=== PATIENT | male | born 1955 | race Caucasian/White ===

== ENCOUNTER 2023-02-20 01:10 | Day surgery (SDC) | payer MEDICARE, SELFPAY ==
[2023-02-11 11:13] VITALS: BMI 25.1
[2023-02-20 12:37] VITALS: BP 137/83; PULSE 68; RESP 18; TEMP 36.2; O2SAT 93
[2023-02-20] MEDS: LACTATED RINGERS 1,000 ML 150 ML IV CONT (12:49)
--- NOTE | 2023-02-20 13:02 | P.PNAN_ITS ---
Anes - Initial Pre Proc Eval Procedure: Operation Date: 02/20/23 13:30 Proposed Procedures p Screening Colonoscopy - Freddy Grove MD Date/Time: 02/20/23 13:02 Surgeon: Freddy Grove MD Pre Op Diagnosis: neoplasm screening Patient Data Age: 67 Gender: M Height: 1.7 m Weight: 83.2 kg Last Vital Signs Temp 97.2 F L 02/20/23 12:37 Pulse 68 02/20/23 12:37 Resp 18 02/20/23 12:37 BP 137/83 02/20/23 12:37 Pulse Ox 93 02/20/23 12:37 O2 Del Method Room Air 02/20/23 12:37 Allergies Allergy/AdvReac Type Severity Reaction Status Date / Time No Known Allergies Allergy Verified 02/20/23 12:35 Home Medications Medication Instructions Recorded Confirmed Type Adults Multivitamin 1 tab-cap PO DAILY 02/11/23 02/11/23 History [place] 3 1,000 mg PO DAILY 02/11/23 02/11/23 History amlodipine 10 mg tablet 10 mg PO DAILY 02/11/23 02/11/23 History magnesium 250 mg tablet 250 mg PO DAILY 02/11/23 02/11/23 History metoprolol succinate 50 mg 50 mg PO DAILY 02/11/23 02/11/23 History tablet,extended release 24 hr pravastatin 80 mg tablet 80 mg PO DAILY 02/11/23 02/11/23 History pregabalin 75 mg capsule 75 mg PO BID PRN NEUROPATHY 02/11/23 02/11/23 History Patient hx anesthesia problems: none Family hx anesthesia problems: none Results Review: All pre-operative results and documents have been reviewed as part of the pre- operative evaluation. [facility], [facility] Social History Social History Smoking status: Never smoker Alcohol intake: current Drinks per week: 4 Alcohol use details: GLASSES WINE Substance use: never Substance use type: does not use Living arrangements: alone Spiritual care concerns: No Anes - Eval Final PreProcedure Day of Procedure 02/20/23 13:02 Patient weight: obese Heart: regular rate and rhythm Lungs: clear to auscultation Airway: Mallampati scale class II Neurological: alert and oriented Last oral intake: >/= 8 hours ASA classification: III Emergent: no Anesthetic plan: proceed Anesthesia type and monitoring: general GIVS and standard monitoring Results Review: All pre-operative results and documents have been reviewed as part of the pre- operative evaluation. Informed Consent: The patient's anesthetic plan and its attendant risks and benefits were discussed with the patient/family/POA. Questions were solicited and answers provided to the satisfaction of the patient/family/POA.
--- NOTE | 2023-02-20 13:10 | P.HP_ITS ---
History of Present Illness History of Present Illness Consent: Risks, benefits, and alternatives have been discussed and questions answered. Patient agrees to proceed with procedure. Chief complaint: neoplasm screening Narrative: Adolfo Landin is a 67 year old male referred for colon cancer screening. Review of Systems Review of Systems: All systems reviewed & are unremarkable except as noted in HPI and below PMFSH Social History Social History Smoking status: Never smoker Alcohol intake: current Drinks per week: 4 Alcohol use details: GLASSES WINE Substance use: never Substance use type: does not use Living arrangements: alone Spiritual care concerns: No Meds Home Medications and Allergies Home Medications Medication Instructions Recorded Confirmed Type Adults Multivitamin 1 tab-cap PO DAILY 02/11/23 02/11/23 History [place] 3 1,000 mg PO DAILY 02/11/23 02/11/23 History amlodipine 10 mg tablet 10 mg PO DAILY 02/11/23 02/11/23 History magnesium 250 mg tablet 250 mg PO DAILY 02/11/23 02/11/23 History metoprolol succinate 50 mg 50 mg PO DAILY 02/11/23 02/11/23 History tablet,extended release 24 hr pravastatin 80 mg tablet 80 mg PO DAILY 02/11/23 02/11/23 History pregabalin 75 mg capsule 75 mg PO BID PRN NEUROPATHY 02/11/23 02/11/23 History Allergies Allergy/AdvReac Type Severity Reaction Status Date / Time No Known Allergies Allergy Verified 02/20/23 12:35 Vital Signs Vital Signs - 24 hr 02/20/23 12:37 Temperature 36.2 C L Pulse Rate 68 Respiratory Rate 18 Blood Pressure 137/83 Pulse Oximetry 93 Oxygen Delivery Room Air Exam Const: General: alert Orientation/consciousness: patient oriented x3 Resp: Auscultation: clear to auscultation bilaterally Cardio: Rhythm: regular rhythm GI: GI Palp: Yes Soft to palpation and No Tenderness to palpation present (GI) Neuro: General: patient oriented x3 Assessment and Plan Assessment and plan (1) Colon cancer screening: Code(s): Z12.11 - Encounter for screening for malignant neoplasm of colon Status: Acute Assessment and Plan: Colonoscopy with possible biopsy or polypectomy or cautery or injection of substances.
[2023-02-20 13:33] VITALS: BP 102/59; PULSE 64; RESP 27; O2SAT 95
[2023-02-20 13:43] VITALS: BP 125/78; PULSE 65; RESP 30; O2SAT 93
[2023-02-20 13:53] VITALS: BP 115/78; PULSE 66; RESP 18; O2SAT 97
== END 2023-02-20 14:30 | disposition home or self-care (01) ==
PROVIDERS: PCP Family Medicine; Visit Provider Internal Medicine Gastroenterology
PROC: 0DJD8ZZ Inspection of Lower Intestinal Tract, Via Natural or Artificial Opening Endoscopic (ICD-10-PCS; CPT 45378; principal; 2023-02-20 13:30)
DX: Z12.11 Encounter for screening for malignant neoplasm of colon (principal); E66.9 Obesity, unspecified; Z68.28 Body mass index [BMI] 28.0-28.9, adult
CPT/HCPCS: G0121; J2704; J7120

== ENCOUNTER 2023-09-15 18:46 | Observation (INO) | payer MEDICARE, SELFPAY ==
[2023-09-15] VITALS (10 sets, daily range): BP systolic 141–198; BP diastolic 79–118; PULSE 64–93; RESP 16–24; TEMP 36.2–36.8; O2SAT 89–99; BMI 29.9
--- NOTE | ~2023-09-15 | CT_ITS ---
EXAMINATION: CT brain wo con DATE: 09/15/2023 19:13 INDICATION: syncope/seizure . TECHNIQUE: Computed tomography (CT) of the head was performed without intravenous contrast. The mA wa s adjusted according to patient size. Iterative reconstruction technique was employed. The dose-lengt h product was 681.00 mGy-cm. COMPARISON: 12/04/2017. FINDINGS: No acute intracranial hemorrhage or extra-axial fluid collection. No hydrocephalus, mass, or herniation. No acute ischemic infarct. Unremarkable dural venous sinus attenuation. No acute osseous abnormality. Bilateral maxillary sphenoid and middle ethmoid mucosal thickening, sphenoid and maxillary osseous sc lerosis, aerated secretions in the left maxillary sinus and nasopharynx aerated spaces are clear. Moderate atrophy and chronic white matter change. Atherosclerotic intracranial calcification. Bilater al lens replacements. IMPRESSION: No acute intracranial process. Acute on chronic sinusitis. Results reported telephonically to Dr. Escobar by Dr. Turner at 7:18 PM on 09/15/2023. Reviewed, dictated and finalized at location K. IMPRESSION: No acute intracranial process. Acute on chronic sinusitis. Results reported telephonically to Dr. Escobar by Dr. Turner at 7:18 PM on .
--- NOTE | ~2023-09-15 | MR_ITS ---
MRA HEAD History: Syncope Technique: 3D time of flight MRA of the head is performed. Findings: The right and left distal vertebral arteries and the basilar and posterior cerebral arterie s are normal. Right and left distal internal carotid arteries and anterior and middle cerebral arteri es are normal. There is no aneurysm, stenosis, or occlusion. Impression: No occlusion, stenosis, or aneurysm. Reviewed, dictated and finalized at location . Impression: No occlusion, stenosis, or aneurysm.
--- NOTE | ~2023-09-15 | XR_ITS ---
EXAMINATION: XR chest 1V portable Exam Date/Time: 09/15/2023 19:38 CDT HISTORY: syncope Comparison: 02/14/2018. RESULT: Lines, tubes, and devices: None. Lungs and pleura: Minimal bibasilar scarring/atelectasis, otherwise clear. Cardiomediastinal silhouette: Stable. Other: No acute osseous or upper abdominal finding. Multiple old right rib fractures IMPRESSION: No acute cardiopulmonary process. Reviewed, dictated and finalized at location K.
--- NOTE | ~2023-09-15 | CT_ITS ---
EXAMINATION: CT cervical spine wo con DATE: 09/15/2023 19:13 INDICATION: head injury TECHNIQUE: Computed tomography (CT) of the cervical spine was performed without intravenous contrast. Automated exposure control and iterative reconstruction technique were employed. The dose-length pro duct was 681.00 mGy-cm. COMPARISON: None. FINDINGS: Vertebral Body Alignment: Intact. Craniocervical and atlantoaxial alignment: Moderate degenerative change. Alignment intact. Osseous structures/fracture: No evidence of a lytic or blastic process in the visualized spine. No e vidence of acute fracture. Cervical soft tissues: The paraspinal soft tissues planes are maintained. Degenerative changes: Multilevel severe degenerative disc disease and facet arthropathy. Multilevel s evere bilateral neural foraminal narrowing. No severe central canal narrowing. 4 mm central protrusio n at C3-4 causing moderate central canal stenosis. IMPRESSION: No acute fracture or traumatic malalignment in the cervical spine. Reviewed, dictated and finalized at location K.
--- NOTE | 2023-09-15 18:49 | ECG_ITS ---
SEE SCANNED COPY FOR CONFIRMED REPORT MTDD
[2023-09-15] MEDS: SODIUM CHLORIDE 0.9% IV 1,000 ML 999 ML IV CONT ×2 (19:32→20:14)
[2023-09-15 19:40] LABS: Basophils Percent Auto 0.5 % (0.2-1.2); Eosinophils Absolute Auto 0.1 K/mm3 (0-0.3); Eosinophils Percent Auto 0.9 % (0-4.4); Hematocrit 48.1 % (42.0-52.0); Hemoglobin 15.3 g/dL (14.0-18.0); Immature Granulocyte Absolute 0.02 K/mm3 (0.00-0.031); Immature Granulocyte Percent A 0.4 % (0-0.5); Lymphocytes Absolute Auto 1.25 K/mm3 (0.9-3.2); Lymphocytes Percent Auto 22.6 % (18.3-44.2); Mean Corpuscular HGB Conc 31.8 g/dl (32-36); Mean Corpuscular Hemoglobin 30.8 pg (26-34); Monocytes Absolute Auto 0.5 K/mm3 (0.1-0.6); Neutrophils Absolute Auto 3.7 K/mm3 (1.3-6.7); Neutrophils Percent Auto 66.6 % (45.5-73.1); Platelet Count Result 159 k/mm3 (150-375); Red Blood Count 4.96 M/mm3 (4.6-6.20); Red Cell Distribution Width 13.6 % (11.5-14.5); White Blood Count 5.5 K/mm3 (4.5-10.0)
[2023-09-15 19:51] LABS: Prothrombin Time 13.7 Seconds (11.1-14.7)
[2023-09-15 19:52] LABS: Partial Thromboplastin Time 25.8 Seconds (22.3-36.8)
[2023-09-15 19:55] LABS: Alanine Aminotransferase 21 U/L (6-50); Albumin Level 4.7 g/dL (3.5-5.1); Alkaline Phosphatase 85 U/L (38-126); Anion Gap 15 mmol/L (4-12); Aspartate Amino Transferase 30 U/L (17-59); Bilirubin,Total 1.1 mg/dL (0.2-1.3); Blood Urea Nitrogen 12 mg/dL (9-20); Calcium 8.7 mg/dL (8.4-10.2); Carbon Dioxide 22 mmol/L (22-30); Chloride 106 mmol/L (98-107); Estimated CRCL calculation 61 ml/min; Estimated Glomerular Filt Rate > 60; Glucose 115 mg/dL (65-110); Magnesium 0.9 mg/dL (1.6-2.3); Potassium 4.1 mmol/L (3.4-5.0); Sodium 143 mmol/L (137-145)
[2023-09-15 20:02] LABS: Ethanol < 10 mg/dL (<10)
[2023-09-15 20:07] LABS: Troponin I < 0.012 ng/mL (0.000-0.034)
[2023-09-15 20:09] LABS: Lactic Acid Reflex 4.9 mmol/L (0.7-2.0)
[2023-09-15] MEDS: MAGNESIUM SULF 2 GM/WATER 50ML 2 GM/50 ML BAG IVPB ×2 (20:10→22:24)
--- NOTE | 2023-09-15 20:14 | ED.GENADULT ---
HPI - General Adult General Chief complaint: Neuro Symptoms/Deficit Stated complaint: AMS, POSSIBLE SEIZURE W/ COLLAPSE Time Seen by Provider: 09/15/23 18:50 History of Present Illness HPI narrative: patient is a 68-year-old gentleman who presents emergency department with chief complaint of syncope. Patient was at a local store and was in line and became unresponsive and fell to the ground the bystanders say there may have been some seizure-like activity EMS brought the patient initially did a stroke activation because the patient was confused but no focal motor deficit. The patient had a pre-hospital blood sugar of 79 upon arrival to the emergency department patient has regained complete normal consciousness is currently alert and able to provide history the patient states he remembers becoming unresponsive but does not remember anything else until he got to the hospital the patient reports he has no weakness in his arms or legs patient does report that he drinks alcohol and normally has multiple drinks per day but has not drank anything today Related Data Home Medications Medication Instructions Recorded Confirmed Adults Multivitamin 1 tab-cap PO DAILY 02/11/23 08/05/23 [place] 3 1,000 mg PO DAILY 02/11/23 08/05/23 magnesium 250 mg tablet 250 mg PO DAILY 02/11/23 08/05/23 metoprolol succinate 50 mg 50 mg PO DAILY 02/11/23 08/05/23 tablet,extended release 24 hr pravastatin 80 mg tablet 80 mg PO DAILY 02/11/23 08/05/23 pregabalin 75 mg capsule 75 mg PO BID PRN NEUROPATHY 02/11/23 08/05/23 Allergies Allergy/AdvReac Type Severity Reaction Status Date / Time No Known Allergies Allergy Verified 08/05/23 14:17 Review of Systems Review of Systems: A 10 system review of systems was completed on the patient and is negative except for what is stated in the HPI. Nursing and ancillary documentation was reviewed. PMFSH Social History Social History Smoking status: Never smoker Alcohol intake: current Drinks per week: 4 Alcohol use details: GLASSES WINE Substance use: never Substance use type: does not use Living arrangements: alone Spiritual care concerns: No Exam Narrative: GENERAL: Well-appearing, well-nourished, and in no acute distress. HEAD: Normocephalic, atraumatic. EYES: PERRLA and EOMI. ENT: Nares clear, no rhinorrhea or epistaxis. Mucous membranes moist. NECK: Supple. CHEST: Clear to auscultation. No respiratory distress. HEART: Regular rate and rhythm. No murmur heard. Normal peripheral pulses. ABDOMEN: Soft, nontender, nondistended, normal active bowel sounds. EXTREMITIES: Normal range of motion. No edema. SKIN: Warm, dry, no rash. NEURO: No focal deficits. Alert and oriented x3. PSYCH: Normal mood and affect. Course Vital Signs Vital signs: Vital Signs Temperature 36.2 C L 09/15/23 19:13 Pulse Rate 70 09/15/23 19:13 Respiratory Rate 17 09/15/23 19:13 Blood Pressure 179/117 H 09/15/23 19:13 Pulse Oximetry 89 L 09/15/23 19:13 Oxygen Delivery Room Air 09/15/23 19:13 Temperature 36.2 C L 09/15/23 19:13 Pulse Rate 68 09/15/23 20:01 Respiratory Rate 16 09/15/23 20:01 Blood Pressure 198/108 H 09/15/23 20:01 Pulse Oximetry 99 09/15/23 20:01 Oxygen Delivery Room Air 09/15/23 20:01 Medical Decision Making [facility] Narrative Medical decision making narrative: differential diagnosis includes withdrawal seizure, generalized seizure, electrolyte abnormality, dysrhythmia, dehydration, laboratory studies were obtained on the patient which showed a lactate of 4.9 the patient has been given 2 L of normal saline boluses the patient had a normal CBC electrolytes did show an anion gap of 15 glucose 115 magnesium was 0.9 liver enzymes are within normal limits troponin was negative alcohol was less than 10 chest x-ray showed no focal findings CT head showed no acute abnormality CT c
[2023-09-15] MEDS: THIAMINE 500 MG/NS 100 ML 500 MG/100 ML BAG 200 MG IVPB (20:23)
[2023-09-15 20:24] LABS: Procalcitonin 0.1 ng/mL
[2023-09-15 20:31] LABS: Appearance Urine Clear (Clear); Bacteria Urine None Seen /hpf; Bilirubin Urine Negative (Negative); Blood Urine 3+ (Negative); Color Urine Yellow (Yellow); Glucose Urine UA Negative (Negative); Ketones Urine Negative (Negative); Leukocyte Esterase Ur Negative LEU/UL (Negative); Nitrate Urine Negative (Negative); Non Pathogenic Casts 0-2; Protein Urine 1+ mg/dL (Negative); RBC Urine >100 /hpf (0-2); Specific Grav Ur 1.009 (1.001-1.035); Squamous Epithelial Cell Urine None Seen /hpf (Few); Urobilinogen Urine 0.2 mg/dL (<2.0); WBC Urine 0-5 /hpf (0-3)
--- NOTE | 2023-09-15 20:33 | PM.IMHP ---
H&P: HPI History of Present Illness Date/Time: 09/15/23 20:33 Chief Complaint: syncope Narrative: This is a 68-year-old male with past medical history significant for alcohol dependence, hypertension. patient presents to the emergency room after having syncopal episode his last drink was Thursday night was at [employer] at the self checkout line when he passed out has no recollection of events. Patient has been his usual state of health prior to this he denies any nausea, vomiting, diarrhea ,cough, sputum production, fevers, rigors, chills, lightheadedness, chest pain, shortness of breath, leg swelling, no vision changes, no headaches, no incontinence of stool or urine. preliminary workup was significant for lactic acid of 4.9 , magnesium level was 0.9, a CT of the head shows acute on chronic sinusitis. EXAMINATION: CT brain wo con DATE: 09/15/2023 19:13 INDICATION: syncope/seizure . TECHNIQUE: Computed tomography (CT) of the head was performed without intravenous contrast. The mA was adjusted according to patient size. Iterative reconstruction technique was employed. The dose-length product was 681.00 mGy-cm. COMPARISON: 12/04/2017. FINDINGS: No acute intracranial hemorrhage or extra-axial fluid collection. No hydrocephalus, mass, or herniation. No acute ischemic infarct. Unremarkable dural venous sinus attenuation. No acute osseous abnormality. Bilateral maxillary sphenoid and middle ethmoid mucosal thickening, sphenoid and maxillary osseous sclerosis, aerated secretions in the left maxillary sinus and nasopharynx aerated spaces are clear. Moderate atrophy and chronic white matter change. Atherosclerotic intracranial calcification. Bilateral lens replacements. IMPRESSION:? No acute intracranial process. Acute on chronic sinusitis. EXAMINATION: CT cervical spine wo con DATE: 09/15/2023 19:13 INDICATION: head injury TECHNIQUE: Computed tomography (CT) of the cervical spine was performed without intravenous contrast. Automated exposure control and iterative reconstruction technique were employed. The dose-length product was 681.00 mGy-cm. COMPARISON: None. FINDINGS: Vertebral Body Alignment: Intact. Craniocervical and atlantoaxial alignment: Moderate degenerative change. Alignment intact. Osseous structures/fracture: No evidence of a lytic or blastic process in the visualized spine.? No evidence of acute fracture. Cervical soft tissues: The paraspinal soft tissues planes are maintained. Degenerative changes: Multilevel severe degenerative disc disease and facet arthropathy. Multilevel severe bilateral neural foraminal narrowing. No severe central canal narrowing. 4 mm central protrusion at C3-4 causing moderate central canal stenosis. IMPRESSION:? No acute fracture or traumatic malalignment in the cervical spine. EXAMINATION:? XR chest 1V portable Exam Date/Time:? 09/15/2023 19:38 CDT HISTORY: syncope ? Comparison:? 02/14/2018. RESULT: Lines, tubes, and devices:? None. Lungs and pleura:? Minimal bibasilar scarring/atelectasis, otherwise clear. Cardiomediastinal silhouette:? Stable. Other:? No acute osseous or upper abdominal finding. Multiple old right rib fractures ? IMPRESSION: No acute cardiopulmonary process. Review of Systems Review of Systems: syncope Constitutional: Constitutional: Denies chills, Denies fatigue, Denies fever(s), Denies malaise, Denies night sweats and Denies weakness Eyes: Eyes: Denies change in vision ENT: Denies dysphagia, Denies vertigo, Denies dizziness and Denies odynophagia Cardiovascular: Cardiovascular: Denies chest pain, Reports leg edema, Denies radiating jaw, neck or arm pain and Denies palpitations Respiratory: Respiratory: Denies cough, Denies excessive phlegm production and Denies dyspnea Gastrointestinal: Gastrointestinal: Denies abdominal pain, Denies nausea and Denies vomiting Genitourinary: Genitourinary
[2023-09-15 20:34] LABS: Add Urine Microscopic? YES
[2023-09-15 20:43] LABS: Amphetamine Screen Urine Negative (Negative); Barbiturate Screen Urine Negative (Negative); Benzodiazepines Screen Urine Positive (Negative); Cannabinoid Screen Urine Positive (Negative); Cocaine Screen Urine Negative (Negative); Methadone Screen Urine Negative (Negative); Opiate Screen Urine Negative (Negative); Phencyclidine Screen Urine Negative (Negative)
[2023-09-15] MEDS: hydrALAZINE HCL 20 MG/ML VIAL 10 MG IV PUSH (21:10)
[2023-09-15] MEDS: hydrALAZINE HCL 20 MG/ML VIAL IV PUSH (22:20)
[2023-09-15] MEDS: DEXTROSE 5%/0.9% SOD CHL 1,000 ML 125 ML IV CONT (22:22)
[2023-09-15 22:36] LABS: Reflex Lactic Acid Yes or No Add Lactic
[2023-09-15] MEDS: chlordiazePOXIDE (*CRX) 25 MG CAPSULE PO (23:08)
[2023-09-15] MEDS: LORazepam INJ (*CRX) 2 MG/ML VIAL IV PUSH (23:08)
[2023-09-15] MEDS: SODIUM CHLORIDE 0.9% INJ 10 ML (23:09)
[2023-09-15 23:33] LABS: Glucose Point of Care 156 mg/dl (65-105)
[2023-09-15 23:49] LABS: Lactic Acid 1.5 mmol/L (0.7-2.0)
[2023-09-15 23:52] LABS: Troponin I < 0.012 ng/mL (0.000-0.034)
[2023-09-16] VITALS (13 sets, daily range): BP systolic 139–173; BP diastolic 71–93; PULSE 66–96; RESP 20–30; TEMP 36.1–36.6; O2SAT 95–100
--- NOTE | 2023-09-16 | ECHO_ITS ---
Patient Info Name: Adolfo Landin Age: 68 years : 1955 Gender: Male Ht: 66 in Wt: 185 lbs BSA: 2.00 m2 HR: 74 bpm BP: 160 / 86 mmHg Heart Rhythm: Sinus Rhythm Technical Quality: Fair Exam Date: 09/16/2023 10:06 AM Exam Location: Echo Lab Patient Status: Inpatient Admit Date: 09/15/2023 Staff Ordering Physician: Bob Guadalupe MD Payroll Accounting Manager: Tisha Oneal RDCS Attending Provider: Bob Guadalupe MD Referring Physician: Anayeli AHUMADA; Exam Type: CA echo doppler color flow Study Info Indications R55 - Syncope and collapse Complete two-dimensional, color flow and Doppler transthoracic echocardiogram is performed. Summary 1. Complete two-dimensional, color flow and Doppler transthoracic echocardiogram is performed. 2. Left ventricular chamber dimension is normal. 3. Left ventricular systolic function is hyperdynamic, estimated at >70%. 4. The left ventricular diastolic function is abnormal. 5. E/e' 10 is mildly elevated. Left Ventricle E/e' 10 is mildly elevated. Left ventricular chamber dimension is normal. Left ventricular systolic function is hyperdynamic, estimated at >70%. The left ventricular diastolic function is abnormal. Right Ventricle Right ventricular systolic function is normal and with normal TAPSE 2.0 cm. Right ventricular chamber dimension is normal. Left Atria Left atrial chamber dimension is normal. Right Atria Right atrial chamber dimension is normal. Aortic Valve The aortic valve is trileaflet. There is no aortic valve stenosis. There is no aortic valve regurgitation. Pulmonic Valve There is no pulmonic regurgitation. Mitral Valve There is no mitral valve stenosis. There is no mitral valve regurgitation. Tricuspid Valve There is no tricuspid valve regurgitation. Pericardium/Pleural There is no pericardial effusion. Inferior Vena Cava Normal inferior vena cava with >50% collapse upon inspiration consistent with normal right atrial pressure, 5 mmHg. Aorta The aortic root size at the sinus of Valsalva is normal. Tricuspid Valve Name Value Normal Estimated PAP/RSVP RA Pressure 5 mmHg <=5 Report Signatures
[2023-09-16] MEDS: chlordiazePOXIDE (*CRX) 25 MG CAPSULE 50 MG PO ×4 (05:40→23:47)
[2023-09-16] MEDS: DEXTROSE 5%/0.9% SOD CHL 1,000 ML 125 ML IV CONT ×2 (05:44→14:39)
[2023-09-16 05:46] LABS: Glucose Point of Care 136 mg/dl (65-105)
[2023-09-16 07:41] LABS: Glucose Point of Care 122 mg/dl (65-105)
--- NOTE | 2023-09-16 08:09 | P.PNIM_ITS ---
Progress Note: A&P Assessment and Plan (1) Alcohol dependence: Code(s): F10.20 - Alcohol dependence, uncomplicated Status: Acute (2) Syncope: Code(s): R55 - Syncope and collapse Status: Acute (3) Hypomagnesemia: Code(s): E83.42 - Hypomagnesemia Status: Acute (4) Hypertension: Code(s): I10 - Essential (primary) hypertension Status: Acute Plan Syncope * Possible seizure like activity due to alcohol withdrawal * positive for cannabis and benzos also on cyclobenzaprine and Lyrica all sedative medications * Echocardiogram pending * MRI brain pending * Orthostatics negative * Cardiac monitoring ETOH abuse * ETOH<10 * Banana bag/IV fluids * Last drink 48hrs * Thiamine, folic acid, and multi-vitamin * PPI daily * librium q6hr * Ativan PRN for seizure activity/anxiety * CIWA daily * Monitor and replenish electrolytes as needed * Seizure precautions if indicated Hypomagnesium * 0.9 POA * EKG reviewed * Monitor and replenish if <2.0 * cardiac monitoring * PO mag daily HTN * Hypertensive * resumed home medications losartan and metoprolol * Hydralazine PRN IVP systolic >160 HX Neuropathy: resumed Lyrica HX HLD: resumed pravastatin Code status: Full code per patient DVT prophylaxis: Lovenox Stress ulcer prophylaxis: Protonix 40 daily PT/OT notes: PT/OT Pending Disposition: Patient admitted to the medical unit on cardiac monitoring due to syncopal episode per notes some bystanders stated it appeared to be seizure-like activity. Patient is everyday drinker however had not any alcohol prior to arrival and ETOH was 10. Echocardiogram and MRI brain pending, orthostatics negative will continue with EtOH withdrawal and seizure precautions. PT/OT ordered for evaluation. Drain be for patient to return home when medically stable. Time Spent With Patient Time with patient: 15 - 25 minutes Subjective Date/time seen: 09/16/23 08:09 Interval history: Admission: Medical Record ?This is a 68-year-old male with past medical history significant for alcohol dependence, hypertension. patient presents to the emergency room after having syncopal episode? his last drink was Thursday night was at [email or web address] at the [employer] checkout line when he passed out has no recollection of events. ? Patient has been his usual state of health prior to this he denies any nausea, vomiting, diarrhea ,cough, sputum production, fevers, rigors, chills, lightheadedness, chest pain, shortness of breath, leg swelling, no vision changes, no headaches, no incontinence of stool or urine. preliminary? workup was significant for lactic acid of 4.9? , magnesium level was 0.9, a CT of the head shows acute on chronic sinusitis. 09/15: Assumed Care Patient denies any further dizziness of syncopal episodes since admission. MRA brain with no acute issues, echo pending. Will replace electrolytes likely this is secondary to his ETOH abuse, PT/OT pending and orthostatics negative. Mild tremors noted otherwise no alcohol w/d symptoms at this time. Review of Systems Review of Systems: All systems reviewed & are unremarkable except as noted in HPI and below Exam Narrative: Physical Exam: * GENERAL: Alert and oriented x 3. No acute distress. mild tremors noted * EYES: EOMI. No scleral icterus. PERRLA. * HEENT: Moist mucous membranes. * LUNGS: Clear to auscultation bilateral
--- NOTE | 2023-09-16 08:09 | PM.IMPN ---
Progress Note: A&P Assessment and Plan (1) Alcohol dependence: Code(s): F10.20 - Alcohol dependence, uncomplicated Status: Acute (2) Syncope: Code(s): R55 - Syncope and collapse Status: Acute (3) Hypomagnesemia: Code(s): E83.42 - Hypomagnesemia Status: Acute (4) Hypertension: Code(s): I10 - Essential (primary) hypertension Status: Acute Plan Syncope Possible seizure like activity due to alcohol withdrawal positive for cannabis and benzos also on cyclobenzaprine and Lyrica all sedative medications Echocardiogram pending MRI brain pending Orthostatics negative Cardiac monitoring ETOH abuse ETOH<10 Banana bag/IV fluids Last drink 48hrs Thiamine, folic acid, and multi-vitamin PPI daily librium q6hr Ativan PRN for seizure activity/anxiety CIWA daily Monitor and replenish electrolytes as needed Seizure precautions if indicated Hypomagnesium 0.9 POA EKG reviewed Monitor and replenish if <2.0 cardiac monitoring PO mag daily HTN Hypertensive resumed home medications losartan and metoprolol Hydralazine PRN IVP systolic >160 HX Neuropathy: resumed Lyrica HX HLD: resumed pravastatin Code status: Full code per patient DVT prophylaxis: Lovenox Stress ulcer prophylaxis: Protonix 40 daily PT/OT notes: PT/OT Pending Disposition: Patient admitted to the medical unit on cardiac monitoring due to syncopal episode per notes some bystanders stated it appeared to be seizure-like activity. Patient is everyday drinker however had not any alcohol prior to arrival and ETOH was 10. Echocardiogram and MRI brain pending, orthostatics negative will continue with EtOH withdrawal and seizure precautions. PT/OT ordered for evaluation. Drain be for patient to return home when medically stable. Time Spent With Patient Time with patient: 15 - 25 minutes Subjective Date/time seen: 09/16/23 08:09 Interval history: Admission: Medical Record ?This is a 68-year-old male with past medical history significant for alcohol dependence, hypertension. patient presents to the emergency room after having syncopal episode? his last drink was Thursday night was at [employer] at the self checkout line when he passed out has no recollection of events. ? Patient has been his usual state of health prior to this he denies any nausea, vomiting, diarrhea ,cough, sputum production, fevers, rigors, chills, lightheadedness, chest pain, shortness of breath, leg swelling, no vision changes, no headaches, no incontinence of stool or urine. preliminary? workup was significant for lactic acid of 4.9? , magnesium level was 0.9, a CT of the head shows acute on chronic sinusitis. 09/15: Assumed Care Patient denies any further dizziness of syncopal episodes since admission. MRA brain with no acute issues, echo pending. Will replace electrolytes likely this is secondary to his ETOH abuse, PT/OT pending and orthostatics negative. Mild tremors noted otherwise no alcohol w/d symptoms at this time. Review of Systems Review of Systems: All systems reviewed & are unremarkable except as noted in HPI and below Exam Narrative: Physical Exam: GENERAL: Alert and oriented x 3. No acute distress. mild tremors noted EYES: EOMI. No scleral icterus. PERRLA. HEENT: Moist mucous membranes. LUNGS: Clear to auscultation bilaterally. No accessory muscle use. CARDIOVASCULAR: Regular rate and rhythm. No murmur. No JVD. S1-S2 ABDOMEN: Soft, mild tenderness and non-distended. No palpable masses. EXTREMITIES: No edema. Non-tender SKIN: No rashes or lesions. Skin warm, dry. NEUROLOGIC: No focal neurological deficits. CN II-XII grossly intact PSYCHIATRIC: Appropriate mood and affect. Good judgement and insight. No visual or auditory hallucinations. No suicidal or homicidal ideation. Objective Data Vital Signs Vital Signs: Vital Signs - 24 hr 09/15/23 19:13
[2023-09-16 08:41] LABS: Hematocrit 42.3 % (42.0-52.0); Hemoglobin 13.8 g/dL (14.0-18.0); Mean Corpuscular HGB Conc 32.6 g/dl (32-36); Mean Corpuscular Hemoglobin 31.3 pg (26-34); Mean Corpuscular Volume 95.9 fl (80-100); Mean Platelet Volume 10.1 fl (7.4-10.4); Platelet Count Result 162 k/mm3 (150-375); Red Blood Count 4.41 M/mm3 (4.6-6.20); Red Cell Distribution Width 13.8 % (11.5-14.5); White Blood Count 6.2 K/mm3 (4.5-10.0)
[2023-09-16 08:57] LABS: Alanine Aminotransferase 17 U/L (6-50); Albumin Level 3.9 g/dL (3.5-5.1); Alkaline Phosphatase 78 U/L (38-126); Anion Gap 7 mmol/L (4-12); Aspartate Amino Transferase 32 U/L (17-59); Bilirubin,Total 1.4 mg/dL (0.2-1.3); Blood Urea Nitrogen 9 mg/dL (9-20); Calcium 7.8 mg/dL (8.4-10.2); Carbon Dioxide 24 mmol/L (22-30); Chloride 109 mmol/L (98-107); Estimated CRCL calculation 87 ml/min; Estimated Glomerular Filt Rate > 60; Glucose 124 mg/dL (65-110); Potassium 3.2 mmol/L (3.4-5.0); Sodium 140 mmol/L (137-145)
[2023-09-16] MEDS: PRAVASTATIN SODIUM 20 MG TABLET 80 MG PO (09:23)
[2023-09-16] MEDS: FOLIC ACID 1 MG TABLET PO (09:23)
[2023-09-16] MEDS: PANTOPRAZOLE 40 MG TABLET PO (09:23)
[2023-09-16] MEDS: MAGNESIUM OXIDE 200 MG TABLET PO (09:23)
[2023-09-16] MEDS: MULTIVITAMINS THERAPEUTIC TAB (*BKC) 1 TABLET PO (09:24)
[2023-09-16] MEDS: LOSARTAN POTASSIUM 100 MG TABLET PO (09:24)
[2023-09-16] MEDS: METOPROLOL SUCCINATE EXT REL 50 MG TABCR PO (09:25)
[2023-09-16] MEDS: ENOXAPARIN 40 MG/0.4 ML SYRINGE SUB-Q (09:25)
[2023-09-16] MEDS: THIAMINE HCL 100 MG TABLET PO (09:25)
[2023-09-16 09:28] LABS: Magnesium 1.4 mg/dL (1.6-2.3)
[2023-09-16 12:51] LABS: Glucose Point of Care 117 mg/dl (65-105)
[2023-09-16] MEDS: MAGNESIUM SULF 2 GM/WATER 50ML 2 GM/50 ML BAG IVPB (14:39)
[2023-09-16] MEDS: POTASSIUM CHLORIDE 20 MEQ ER TABLET 40 MEQ PO (14:40)
[2023-09-16] MEDS: hydrALAZINE HCL 20 MG/ML VIAL IV PUSH (15:42)
[2023-09-16] MEDS: LORazepam INJ (*CRX) 2 MG/ML VIAL IV PUSH (15:43)
[2023-09-16 17:35] LABS: Glucose Point of Care 160 mg/dl (65-105)
[2023-09-17] VITALS (10 sets, daily range): BP systolic 145–178; BP diastolic 70–100; PULSE 61–79; RESP 16; TEMP 36.6; O2SAT 96–100
[2023-09-17 00:05] LABS: Glucose Point of Care 103 mg/dl (65-105)
[2023-09-17] MEDS: DEXTROSE 5%/0.9% SOD CHL 1,000 ML 125 ML IV CONT (01:17)
[2023-09-17] MEDS: chlordiazePOXIDE (*CRX) 25 MG CAPSULE 50 MG PO ×2 (04:57→13:16)
[2023-09-17] MEDS: hydrALAZINE HCL 20 MG/ML VIAL IV PUSH (04:57)
[2023-09-17 05:29] LABS: Hematocrit 40.5 % (42.0-52.0); Hemoglobin 12.9 g/dL (14.0-18.0); Mean Corpuscular HGB Conc 31.9 g/dl (32-36); Mean Corpuscular Hemoglobin 31.1 pg (26-34); Mean Corpuscular Volume 97.6 fl (80-100); Mean Platelet Volume 9.9 fl (7.4-10.4); Platelet Count Result 149 k/mm3 (150-375); Red Blood Count 4.15 M/mm3 (4.6-6.20); Red Cell Distribution Width 13.9 % (11.5-14.5); White Blood Count 6.1 K/mm3 (4.5-10.0)
[2023-09-17 05:48] LABS: Alanine Aminotransferase 20 U/L (6-50); Albumin Level 3.7 g/dL (3.5-5.1); Alkaline Phosphatase 74 U/L (38-126); Anion Gap 6 mmol/L (4-12); Aspartate Amino Transferase 31 U/L (17-59); Bilirubin,Total 1.5 mg/dL (0.2-1.3); Blood Urea Nitrogen 6 mg/dL (9-20); Calcium 7.9 mg/dL (8.4-10.2); Carbon Dioxide 23 mmol/L (22-30); Chloride 109 mmol/L (98-107); Estimated CRCL calculation 77 ml/min; Estimated Glomerular Filt Rate > 60; Glucose 108 mg/dL (65-110); Magnesium 1.4 mg/dL (1.6-2.3); Potassium 3.4 mmol/L (3.4-5.0); Sodium 138 mmol/L (137-145)
[2023-09-17 06:26] LABS: Glucose Point of Care 115 mg/dl (65-105)
[2023-09-17] MEDS: POTASSIUM CHLORIDE 20 MEQ ER TABLET 40 MEQ PO (11:15)
[2023-09-17] MEDS: THIAMINE HCL 100 MG TABLET PO (11:15)
[2023-09-17] MEDS: MAGNESIUM OXIDE 200 MG TABLET PO (11:15)
[2023-09-17] MEDS: PRAVASTATIN SODIUM 20 MG TABLET 80 MG PO (11:15)
[2023-09-17] MEDS: METOPROLOL SUCCINATE EXT REL 50 MG TABCR PO (11:16)
[2023-09-17] MEDS: LOSARTAN POTASSIUM 100 MG TABLET PO (11:16)
[2023-09-17] MEDS: MULTIVITAMINS THERAPEUTIC TAB (*BKC) 1 TABLET PO (11:16)
[2023-09-17] MEDS: PANTOPRAZOLE 40 MG TABLET PO (11:16)
[2023-09-17] MEDS: ENOXAPARIN 40 MG/0.4 ML SYRINGE SUB-Q (11:17)
[2023-09-17] MEDS: FOLIC ACID 1 MG TABLET PO (11:17)
[2023-09-17] MEDS: MAGNESIUM SULF 2 GM/WATER 50ML 2 GM/50 ML BAG IVPB (11:45)
[2023-09-17 11:50] LABS: Glucose Point of Care 134 mg/dl (65-105)
[2023-09-17] MEDS: CYCLOBENZAPRINE HCL 10 MG TABLET PO (11:57)
--- NOTE | 2023-09-17 13:13 | PM.DS ---
DS: Admitting Diagnosis Discharge Date 09/17/2023 Admitting Diagnosis Syncope/ETOH abuse/seizure secondary to alcohol withdrawal DS: Discharge Diagnosis Discharge Diagnosis (1) Alcohol dependence: Code(s): F10.20 - Alcohol dependence, uncomplicated Status: Acute (2) Syncope: Code(s): R55 - Syncope and collapse Status: Acute (3) Hypomagnesemia: Code(s): E83.42 - Hypomagnesemia Status: Acute (4) Hypertension: Code(s): I10 - Essential (primary) hypertension Status: Acute Plan Syncope Possible seizure like activity due to alcohol withdrawal positive for cannabis and benzos also on cyclobenzaprine and Lyrica all sedative medications Echocardiogram pending MRI brain pending Orthostatics negative Cardiac monitoring ETOH abuse ETOH<10 Banana bag/IV fluids Last drink 48hrs Thiamine, folic acid, and multi-vitamin PPI daily librium q6hr Ativan PRN for seizure activity/anxiety CIWA daily Monitor and replenish electrolytes as needed Seizure precautions if indicated Hypomagnesium 0.9 POA EKG reviewed Monitor and replenish if <2.0 cardiac monitoring PO mag daily HTN Hypertensive resumed home medications losartan and metoprolol Hydralazine PRN IVP systolic >160 HX Neuropathy: resumed Lyrica HX HLD: resumed pravastatin Disposition: Discharged to home will have follow-up with a supervisor tan room and primary after discharge DS: Summary Hospital Course Reason for hospitalization: Syncope/ETOH abuse/seizure secondary to alcohol withdrawal Hospital Course: Admission:? Medical Record ?This is a 68-year-old male with past medical history significant for alcohol dependence, hypertension. patient presents to the emergency room after having syncopal episode? his last drink was Thursday night was at [employer] at the [employer] checkout line when he passed out has no recollection of events. ? Patient has been his usual state of health prior to this he denies any nausea, vomiting, diarrhea ,cough, sputum production, fevers, rigors, chills, lightheadedness, chest pain, shortness of breath, leg swelling, no vision changes, no headaches, no incontinence of stool or urine. preliminary? workup was significant for lactic acid of 4.9? , magnesium level was 0.9, a CT of the head shows acute on chronic sinusitis. 09/15: Assumed Care Patient denies any further dizziness of syncopal episodes since admission.? MRA brain with no acute issues, echo pending.? Will replace electrolytes likely this is secondary to his ETOH abuse, PT/OT pending and orthostatics negative. Mild tremors noted otherwise no alcohol w/d symptoms at this time. 09/16: Discharged Patient feeling well with no further syncopal episodes, electrolytes stable. Echo: Summary ? 1. Complete two-dimensional, color flow and Doppler transthoracic echocardiogram is performed. ? 2. Left ventricular chamber dimension is normal. ? 3. Left ventricular systolic function is hyperdynamic, estimated at >70%. ? 4. The left ventricular diastolic function is abnormal. ? 5. E/e' 10 is mildly elevated. Patient was discharged to home with a 30 day event monitor and reinforced the need to stop drinking. Will have follow-up with primary and cardiology outpatient. Status at Discharge Functional status at discharge: independent ambulation Time Spent with Patient Time attestation: Total time spent providing and/or coordinating discharge services: Time spent: Less than 30 minutes Exam Narrative: Physical Exam: GENERAL: Alert and oriented x 3. No acute distress. mild tremors noted EYES: EOMI. No scleral icterus. PERRLA. HEENT: Moist mucous membranes. LUNGS: Clear to auscultation bilaterally. No accessory muscle use. CARDIOVASCULAR: Regular rate and rhythm. No murmur. No JVD. S1-S2 ABDOMEN: Soft, mild tenderness and non-distended. No palpable masses. EXTREMITIES: No edema. Non-tender SKIN
[2023-09-21 08:50] LABS: Glucose Point of Care 96 mg/dl (65-105)
== END 2023-09-17 15:15 | disposition home or self-care (01) ==
LOC: ANHED 20:18 → ANH2MED 22:40
PROVIDERS: Nurse Practitioner Family; Admitting Provider Internal Medicine; Emergency Provider Emergency Medicine; PCP Family Medicine; Visit Provider General Practice
DX: R55 Syncope and collapse (principal); E83.42 Hypomagnesemia; F10.20 Alcohol dependence, uncomplicated; I10 Essential (primary) hypertension; J01.90 Acute sinusitis, unspecified; F12.90 Cannabis use, unspecified, uncomplicated; Z79.899 Other long term (current) drug therapy
CPT/HCPCS: 36415; 70450; 70544; 71045; 72125; 80053; 80307; 81001; 82948; 83605; 83735; 84145; 84484; 85025; 85027; 85610; 85730; 93005; 93306; 96361; 96365; 96366; 96367; 96372; 96375; 96376; 97110; 97161; 97165; 97530; 99285; A9270; G0378; J0360; J1650; J2060; J3411; J3475; J7030; J7042